=== PATIENT | female | born 1960 | race Caucasian/White ===

== ENCOUNTER 2020-10-25 08:56 | Observation (INO) ==
[2020-10-25] MEDS ORDERED: predniSONE 20 MG TABLET PO ONE (09:41)
[2020-10-25 10:04] LABS: Basophils % 0.2 %; Eosinophils # 0.2 K/mcL (0.0-0.6); Eosinophils % 1.1 %; Hematocrit 47.7 % (35.3-44.9); Hemoglobin 15.3 g/dL (11.5-15.4); Immature Granulocytes % 0.6 % (0-4); Lymphocytes # 1.1 K/mcL (0.6-4.6); Lymphocytes % 8.5 %; Mean Corpuscular HGB Conc 32.1 g/dL (31.6-35.5); Mean Corpuscular Hemoglobin 32.4 pg (28.0-33.3); Mean Corpuscular Volume 101.1 fL (83.0-100.0); Mean Platelet Volume 10.4 fL (9.4-12.4); Monocytes # 0.8 K/mcL (0.0-1.3); Monocytes % 5.8 %; Platelet Count 215 K/mcL (140-400); Red Blood Count 4.72 M/mcL (3.82-4.97); Segmented Neutrophils % 83.8 %; White Blood Count 13.1 K/mcL (4.3-11.1)
[2020-10-25 10:23] LABS: BUN/Creatinine Ratio 13 (6-26); Blood Urea Nitrogen 11 mg/dL (8-23); Calcium 9.6 mg/dL (8.6-10.3); Carbon Dioxide 30 mEq/L (23-29); Chloride 99 mEq/L (98-107); Glucose 241 mg/dL (70-105); Osmolality,Calculated 289 (280-300); Potassium 4.2 mEq/L (3.5-5.1); Sodium 136 mEq/L (136-145); eGFR For African Americans > 60 (> 60); eGFR For Non-African Americans > 60 (> 60)
[2020-10-25] MEDS ORDERED: Piperacillin/Tazobactam 3.375 GM in 0.9 % Sodium Chloride Mini Bag 100 ML IVPB ONE (11:29)
[2020-10-25] MEDS ORDERED: 0.9 % Sodium Chloride 1,000 ML IV ONE (11:42)
[2020-10-25] MEDS ORDERED: Vancomycin 1,500 MG/265 ML IV.SOLN IVPB ONE (12:00)
[2020-10-25] MEDS ORDERED: Ondansetron 4 MG/2 ML VIAL IVP PRN (12:55)
[2020-10-25] MEDS ORDERED: Acetaminophen 325 MG TABLET PO PRN (12:55)
[2020-10-25] MEDS ORDERED: Naloxone 0.4 MG/ML INJ IVP PRN (12:55)
[2020-10-25] MEDS ORDERED: *HR* Dextrose 50 % in Water (Vial) 50 ML VIAL IVP PRN (12:57)
[2020-10-25] MEDS ORDERED: D5% in Water 1,000 ML IVC PRN (12:57)
[2020-10-25] MEDS ORDERED: Dextrose Gel 15 GM/37.5 ML TUBE PO PRN ×2 (12:57)
[2020-10-25] MEDS ORDERED: Famotidine 20 MG/2 ML VIAL IVP ONE (13:38)
[2020-10-25 14:57] LABS: Estimated Average Glucose 223 mg/dl; Hemoglobin A1C 9.4 %
[2020-10-25] MEDS: Insulin LISPRO 300 UNITS/3 ML VIAL SUBQ SCH (17:10)
[2020-10-25] MEDS ORDERED: Insulin DETEMIR 100 UNIT/ML X5UNITS SUBQ SCH (21:00)
[2020-10-25] MEDS ORDERED: traZODone 50 MG TABLET PO PRN (21:05)
[2020-10-25] MEDS: *HR* Heparin 5,000 UNIT/ML VIAL SQ SCH (21:18)
[2020-10-25] MEDS: Neosporin OINT 15 GM TUBE TP SCH (21:18)
[2020-10-26] MEDS: *HR* Heparin 5,000 UNIT/ML VIAL SQ SCH (05:05)
[2020-10-26 05:40] LABS: Basophils % 0.3 %; Eosinophils # 0.1 K/mcL (0.0-0.6); Eosinophils % 0.7 %; Immature Granulocytes % 0.7 % (0-4); Lymphocytes # 1.8 K/mcL (0.6-4.6); Lymphocytes % 14.5 %; Mean Corpuscular HGB Conc 32.6 g/dL (31.6-35.5); Mean Corpuscular Hemoglobin 32.1 pg (28.0-33.3); Mean Corpuscular Volume 98.4 fL (83.0-100.0); Mean Platelet Volume 10.3 fL (9.4-12.4); Monocytes # 0.9 K/mcL (0.0-1.3); Neutrophils # 9.7 K/mcL (1.6-8.9); Platelet Count 219 K/mcL (140-400); Red Blood Count 4.27 M/mcL (3.82-4.97); Red Cell Distribution Width 12.8 % (11.5-14.5); Segmented Neutrophils % 76.8 %; White Blood Count 12.7 K/mcL (4.3-11.1)
[2020-10-26 05:41] LABS: Hemoglobin 13.7 g/dL (11.5-15.4)
[2020-10-26 06:01] LABS: BUN/Creatinine Ratio 16 (6-26); Blood Urea Nitrogen 13 mg/dL (8-23); Calcium 9.2 mg/dL (8.6-10.3); Carbon Dioxide 28 mEq/L (23-29); Chloride 104 mEq/L (98-107); Glucose 131 mg/dL (70-105); Osmolality,Calculated 288 (280-300); Potassium 3.7 mEq/L (3.5-5.1); Sodium 138 mEq/L (136-145); eGFR For African Americans > 60 (> 60); eGFR For Non-African Americans > 60 (> 60)
[2020-10-26] MEDS ORDERED: Famotidine 20 MG/2 ML VIAL IVP ONE (07:00)
[2020-10-26 07:38] VITALS: BP 155/82
[2020-10-26] MEDS: Insulin LISPRO 300 UNITS/3 ML VIAL SUBQ SCH (08:38)
[2020-10-26] MEDS: Neosporin OINT 15 GM TUBE TP SCH (08:39)
== END 2020-10-26 11:42 | disposition home or self-care (01) ==
LOC: 3ANU 08:56 → EMEROOARM 08:56 → 3ANU 14:00
PROVIDERS: ADMIT Internal Medicine; ATTEND Internal Medicine